=== PATIENT | female | born 1945 | race Hispanic/Latino ===

== ENCOUNTER 2017-10-23 12:42 | Outpatient (CLI) | payer MEDICARE ==
--- NOTE | 2017-10-23 13:57 | XRay Report ---
XRAY LEFT HAND THREE VIEWS: 10/23/17 12:42:00 CLINICAL: Left thumb pain. FINDINGS: Severe osteoarthritis at the basal joint of the thumb and mild osteoarthritis at the first MCP joint and the DIP joint of the thumb. Arthritis at the third MCP joint with uniform loss of the joint space and minimal osteophyte formation. Similar but less severe arthritis at the second MCP joint. Mild osteoarthritis at the DIP joints of the second and third digits. No erosions. The carpal bones are intact. Calcification of the triangular fibrocartilage of the wrist. The distal radius and ulna are intact. No fracture or dislocation. Normal soft tissues. IMPRESSION: Severe osteoarthritis at the basal joint of the thumb and lesser degrees of osteoarthritis involving the other joints of the thumb and the MCP and DIP joints of the second and third digits. No erosive arthritis.
--- NOTE | 2017-10-23 14:01 | XRay Report ---
XRAY LEFT WRIST FOUR VIEWS:10/23/17 12:42:00 CLINICAL: Left wrist pain. FINDINGS: Severe osteoarthritis at the basal joint of the thumb. The carpal bones are intact. Mild radiocarpal joint arthritis. Mild calcification of the triangular fibrocartilage of the wrist. Osteoarthritis involving the first MCP joint and the first DIP joint. Osteoarthritis of the second and third MCP joints. No erosions. No fracture or dislocation. Normal soft tissues. IMPRESSION: Severe osteoarthritis at the basal joint of the thumb and lesser degree of osteoarthritis involving the DIP joint of the thumb and the first, second and third MCP joints and the radiocarpal joint..
== END 2017-10-23 12:43 | disposition home or self-care (01) ==
LOC: SPVIMAG 12:42
PROVIDERS: ATTEND Internal Medicine
DX: M19.032 Primary osteoarthritis, left wrist (principal)